=== PATIENT | female | born 1970 | race Caucasian/White ===

== ENCOUNTER 2018-10-11 17:51 | Emergency (ER) | payer OTHER ==
[~2018-10-11] VITALS: Ht 152.4 cm; Wt 74.0 kg
[~2018-10-11 17:51] MED LIST: CALC600T5 PO; FER325 PO; FERR159T PO; FOLI-49 PO; MECL-77 PO; PREN1TAB31 PO
[2018-10-11 18:03] VITALS: Ht 152.4 cm; Wt 74.0 kg
[2018-10-11 20:29] VITALS: BP 137/79; PULSE 73; RESP 18
== END 2018-10-11 20:30 | disposition home or self-care (01) ==
LOC: FTE 17:51
DX: R42 Dizziness and giddiness (principal); R00.2 Palpitations
CPT/HCPCS: 80053; 84484; 85025; 93005; Z7502